=== PATIENT | male | born 1970 | race Caucasian/White ===

== ENCOUNTER → 2017-02-05 | Outpatient (CLI) | payer OTHER | LOC: FIMAGING 07:41 | PROVIDERS: ATTEND Orthopaedic Surgery | DX: Z01.818 Encounter for other preprocedural examination (principal); M17.12 Unilateral primary osteoarthritis, left knee; M25.462 Effusion, left knee; M25.552 Pain in left hip; M25.452 Effusion, left hip ==

== ENCOUNTER 2017-03-10 05:45 | Observation (INO) | payer OTHER ==
--- NOTE | 2017-02-23 11:00 | GHP ---
[f rep st] PREOP HISTORY AND PHYSICAL Amended report DATE OF ADMISSION: 03/10/2017 PROBLEM: Left knee medial compartment degenerative arthritis. HISTORY OF PRESENT ILLNESS: The patient is a 46-year-old man admitted for a left knee medial compartment Oscar hemiarthroplasty. I did arthroscopic surgery on his left knee in 2007. It was repeated again by Dr. Shalom Sood in 2011. His knee has been consistently painful since 2014. He complains of medial joint line pain. He is having daily pain and night pain. 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 He occasionally notices swelling. He cannot take anti-inflammatory medicines because of a history of ulcers. He is admitted for a left knee medial compartment Oscar hemiarthroplasty. PAST MEDICAL HISTORY: He has GERD and peptic ulcer disease. He is also treated for anxiety. No history of heart disease, stents, DVT, hepatitis or sleep apnea. CURRENT MEDICATIONS: Apresoline 0.5 mg at h.s. for sleep; aripiprazole, fluoxetine and lamotrigine all taken for anxiety. He is also on lithium for anxiety. He takes delayed release pantoprazole daily. REVIEW OF SYSTEMS: No history of heart disease, stents, DVT, hepatitis, or sleep apnea. He has never had a serious MRSA staph infection. ALLERGIES: Drug allergies: None. Metal allergy: None. Latex allergy: None. SOCIAL HISTORY: The patient is . He smokes about 5 cigarettes per day. He does not drink alcohol. FAMILY HISTORY: Positive for diabetes, heart disease and hypertension. PHYSICAL EXAMINATION: GENERAL: He is a healthy-appearing man. Height 5 feet, 10 inches. Weight 178 pounds. BMI 25.5. EYES: Conjunctivae and sclerae are clear. Pupils are round and reactive. MOUTH: Good oral hygiene. No loose teeth. CHEST: Clear. HEART: Regular rhythm. No murmurs. EXTREMITIES: Pertinent findings limited to his left knee. He has a small effusion. Full extension and 130 degrees of flexion. Mild pseudolaxity of his medial collateral ligament. Valgus stress aggravates his pain. He is tender along the medial joint line. His patella is not tender with compression and subluxation. No patellofemoral crepitation with active knee extension. IMAGING: His films show moderately severe degenerative arthritis in the medial compartment of his left knee. He has peripheral osteophytes, cartilage space narrowing and subchondral sclerosis. IMPRESSION ON ADMISSION: 1. Left knee medial compartment degenerative arthritis. 2. Gastroesophageal reflux disease and peptic ulcer disease. 3. Treatment for anxiety. PLAN: He will undergo a left knee medial compartment Oscar hemiarthroplasty. The surgery has been described to him including the risks, complications, expectations and recovery time. I have stressed the importance of postoperative physical therapy. He understands that he is young for any type of arthroplasty and that it may require revision surgery in the future. All of his questions have been answered, and he consents to surgery. /[id number]/MODL Add acc#, 02/24/17, felipe ROLDAN
[2017-03-10] MEDS ORDERED: ROPI/epiNEPH/KETOROLAC JOINT COCKTAIL IU ONE (06:00)
[2017-03-10] MEDS ORDERED: ACETAMINOPHEN 325 MG TAB PO ONE (06:00)
[2017-03-10] MEDS ORDERED: DEXAMETHASONE 4 MG/ML VIAL IVP ONE (06:00)
[2017-03-10] MEDS ORDERED: TRANEXAMIC ACID 800 MG in NS 100 ML IV ONE (06:00)
[2017-03-10] MEDS ORDERED: CEFAZOLIN 2 GM/DEXTR 100 ML IV ONE (06:00)
[2017-03-10] MEDS ORDERED: CHLORHEXIDINE GLUC HIBICLENS 118 ML BTL TP ONE (06:00)
[2017-03-10] MEDS ORDERED: POVIDONE-IODINE 20 ML in SODIUM CL IRRIG SOLUTION 500 ML IRR ONE (06:00)
[2017-03-10] MEDS ORDERED: FAMOTIDINE 20 MG TAB PO ONE (06:00)
[2017-03-10] MEDS ORDERED: LIDOCAINE 1% 2 ML INJ ONE (06:06)
[2017-03-10] MEDS ORDERED: LR 1,000 ML IV ONE (06:23)
[2017-03-10] MEDS ORDERED: LIDOCAINE 1% 5 ML SDV ID PRN (06:23)
[2017-03-10] MEDS ORDERED: ceFAZolin 1 GM/5 ML SYR ONE (06:49)
[2017-03-10] MEDS ORDERED: VANCOMYCIN 1 GM VIAL IV ONE (06:49)
[2017-03-10] MEDS ORDERED: MIDAZOLAM 2 MG/2 ML VIAL ONE (06:56)
[2017-03-10] MEDS ORDERED: PROPOFOL/EMULSION 500 MG/50 ML BOTTLE IV ONE (07:03)
[2017-03-10] MEDS ORDERED: epHEDrine SULFATE 10 MG/ML SYR ONE (07:24)
[2017-03-10] MEDS ORDERED: GLYCOPYRROLATE 0.2 MG/1 ML VIAL ONE (07:24)
[2017-03-10] MEDS ORDERED: ONDANSETRON 4 MG/2 ML VIAL ONE (08:13)
[2017-03-10] MEDS ORDERED: RANITIDINE 50 MG/2 ML VIAL ONE (08:13)
[2017-03-10] MEDS ORDERED: ROPIVACAINE HCL 150 MG/30 ML INJ ONE (08:13)
[2017-03-10] MEDS ORDERED: DIAZEPAM 10 MG/2 ML SYR ONE (08:17)
[2017-03-10] MEDS ORDERED: traMADol 50 MG TAB PO PRN (09:17)
[2017-03-10] MEDS ORDERED: NS 500 ML IV PRN (09:17)
[2017-03-10] MEDS ORDERED: diphenhydrAMINE 25 MG CAP PO PRN (09:17)
[2017-03-10] MEDS ORDERED: POLYETHYLENE GLYCOL 3350 17 GM PKT PO PRN (09:17)
[2017-03-10] MEDS ORDERED: BISACODYL 10 MG SUPP PR PRN (09:17)
[2017-03-10] MEDS ORDERED: DIPHENOXYLATE/ATROPINE LOMOTIL 1 TAB PO PRN (09:17)
[2017-03-10] MEDS ORDERED: PHARMACY PAIN CONSULT 1 EA MISC PRN (09:17)
[2017-03-10] MEDS ORDERED: KETOROLAC 30 MG/1 ML SDV IVP PRN (09:17)
[2017-03-10] MEDS ORDERED: PROMETHAZINE HCL 25 MG SUPPR PR PRN (09:17)
[2017-03-10] MEDS ORDERED: oxyCODONE IR 5 MG TAB PO PRN (09:17)
[2017-03-10] MEDS ORDERED: LACTULOSE 20 GM/30 ML UDCUP PO PRN (09:17)
[2017-03-10] MEDS ORDERED: ONDANSETRON DISINTEGRATING 4 MG TAB PO PRN (09:17)
[2017-03-10] MEDS ORDERED: ONDANSETRON 4 MG/2 ML VIAL IVP PRN (09:17)
[2017-03-10] MEDS ORDERED: MAGNESIUM HYDROXIDE 30 ML UDCUP PO PRN (09:17)
[2017-03-10] MEDS ORDERED: CYCLOBENZAPRINE 10 MG TAB PO PRN (09:17)
[2017-03-10] MEDS ORDERED: LR 1,000 ML IV SCH (09:30)
--- NOTE | 2017-03-10 09:30 | POSTOPPROG ---
Post Op Note Date of Operation: 03/10/17 Surgeon: Nazario Varma Casing Man: Alejandro Anesthesiologist: Ana Anesthesia: IV Sedation, Spinal Post-op Diagnosis: right knee arthritis Procedure: R Oscar medial uni arthroplasty Inf/Abcess present in the surg proc area at time of surgery?: No EBL: 50-100 (add canal block)
--- NOTE | 2017-03-10 11:00 | GOP ---
[f rep st] OPERATIVE REPORT DATE OF OPERATION: 03/10/2017 SURGEON: Nazario Varma MD INSPECTOR MACHINE CUT GLASS: Jt Allen CFA. ANESTHESIA: Combination of Marcaine spinal, IV sedation, and adductor canal block. ANESTHESIOLOGIST: Andria Perez M.D. PREOPERATIVE DIAGNOSIS: Left knee medial compartment degenerative arthritis. POSTOPERATIVE DIAGNOSIS: Left knee medial compartment degenerative arthritis. PROCEDURE PERFORMED: Left knee Oscar medial compartment Uni arthroplasty. FINDINGS: DESCRIPTION OF PROCEDURE: The patient was given 2 g of preoperative IV Ancef within 60 minutes of s urgery. He also received IV tranexamic acid at a dose of 10 mg/kg. He was placed on the operating room table and given spinal anesthesia with Marcaine by Dr. Wilks. He was then placed supine and given IV sedation. A Navarro catheter was not used. He wore a NICOEL stocking and SCD on the nonope rative leg. His left lower extremity was prepped with ChloraPrep from the upper thigh tourniquet to the tips of the toes. It was draped free using sterile sheets, towels, and Ioban plastic drape. T he World Health Organization time-out was performed to verify the correct surgical site and side, an d the correct patient identity. The [facility] leg holding device was sterilely attached to the operat ing room table and used throughout the procedure to help position the knee. Two 3 mm partially threaded pins were inserted into the anteromedial cortex of the femur approximate ly 4-5 inches proximal to the superior pole of the patella. They were inserted in a bicortical fash ion. Two 3 mm partially threaded pins were inserted into the anteromedial cortex of the tibia about 4-5 inches distal to the tibial tubercle. They were also inserted bicortical. The [employer]eler[employer] g arrays were attached to the femur and tibia. I confirmed that the arrays were visualized by the c omputer. The leg was exsanguinated with a 6 inch Johann wrap and the pneumatic tourniquet was inflated to 300 mmHg. I made a 4 inch curved medial parapatellar incision. Subcutaneous tissues were sharply divided and hemostasis was obtained using electrocautery. The capsule and synovium were opened in a medial para patellar fashion. Significant degenerative changes were present in his medial compartment. The art icular surface of his patella and the articular surface of the lateral femoral condyle that I could see were in very good condition. The medial capsule and periosteum were elevated off the rim of the medial tibial plateau all the way around to the posteromedial corner. I released the medial collat eral ligament enough to balance the medial side of the knee. The anterior portion of his medial men iscus was excised. A small portion of the fat pad was excised to improve exposure. The femoral and tibial check points were inserted, checked, and confirmed. I then performed the hip registration. This was followed by registration of the medial and lateral malleoli. The bony dayanna jeffery of the femur and tibia and the medial compartment were registered. Joint balancing was checked and captured in multiple degrees of flexion from 10 degrees to 120 degre es. I used a curved osteotome in the medial compartment to properly tension the medial collateral l igament. Implant position and templating were performed. I made a few minor adjustments in the pos ition of the femoral component to achieve proper balance of the medial collateral ligament throughou t the range of motion. I confirmed the preoperative plan for a size 6 on the femur and size 6 on th e tibia. The robotic arm was registered. I performed the burring on the medial femoral condyle first. This was followed by the burring of the tibial plateau with robotic arm control. The cut cartilage edges were trimmed with a rongeur. The anchor holes on the femur and the tibia were completed. I excise d the posterior horn of his medial meniscus. I did a trial reduction and confirmed that the 6 femur with a 6 tray and an 8 mm insert were correct . He had good position of his components. He had full range of motion and 135 degrees of flexion. His medial collateral ligament was properly tensioned throughout the range of motion. A second dose of tranexamic acid was given at a dose of 10 mg/kg. The surfaces were prepared for ce menting. They were carefully cleaned with the pulsating lavage. The CarboJet device was used to bl ow dry the cancellous surfaces. A single batch of high viscosity methylmethacrylate cement with 1 g of added vancomycin was mixed. While it was still in a doughy workable stage, I packed the peg hol es on the tibial surface and layered some additional cement on the undersurface of the tray. This w as inserted and tapped securely into place. Excess cement was removed before it hardened. I packed a small amount of cement in the peg holes of the femur and added some additional cement on the back surface of the femoral component. The component was inserted and tapped securely into place. Exce ss cement was removed before it hardened. The trial size 6, 8 mm polyethylene trial was inserted an d locked into place. I held tension on the knee until the cement hardened. Excess cement was remov ed before it hardened. I then removed the trial component and reinspected the posterior compartment to make sure there was no extruded cement. The actual Oscar 8 mm size 6 tibial insert was inserted and locked into place. The tourniquet was deflated. The total tourniquet time was 1 hour and 17 minutes. The tibial and f emoral check points were removed. Two pins in the femur and the 2 pins in the tibia were removed. 40 mL of a joint anesthetic cocktail were injected into the medial capsule, the vastus medialis tend on and muscle, and the subcutaneous tissues along the skin edges. A drain was not used. The vastus medialis portion of the extensor mechanism was repaired with several interrupted [id number] #2 FiberWire sutures. The capsule and synovium were closed first with multiple interrupted figure-of- eight 0 PDS sutures, followed by a running #2 barbed Ethicon Stratafix PDO suture. Subcutaneous tis sues were closed with a running 0 barbed Ethicon Stratafix Monoderm suture. The skin was closed wit h a running 3-0 barbed Ethicon Stratafix Monoderm subcuticular suture. The skin edges were reapprox imated and sealed with half-inch Steri-Strips. The puncture wounds were closed with Steri-Strips. The wound was covered with Xeroform gauze and flat 4x4s, and the knee was wrapped with Kerlix and 6- inch compressive wrap. A long-leg NICOLE stocking was applied followed by the cooling device. He wore a stocking and SCD on the opposite leg during the procedure. I used a Oscar Restoris MCK femoral component in size 6. The tibial tray was a Oscar Restoris MCK in size 6. The tibial insert was a size 6 and 8 mm in thickness. Jt Allen acted as the cancer genetics assistant. His assistance was a medical necessity. /[id number]/MODL
[2017-03-10] MEDS: ACETAMINOPHEN 325 MG TAB PO SCH ×2 (12:12→17:42)
[2017-03-10 13:07] VITALS: RESP 16
[2017-03-10] MEDS ORDERED: ceFAZolin 2 GM/DEXTROSE 100 ML IV SCH (15:00)
[2017-03-10 15:22] VITALS: BP 104/78; PULSE 45; TEMP 98; O2SAT 97
[2017-03-10] MEDS ORDERED: TRANEXAMIC ACID 650 MG TAB PO SCH (16:00)
[2017-03-10] MEDS ORDERED: ASPIRIN 325 MG TAB PO SCH (21:00)
[2017-03-10] MEDS ORDERED: FAMOTIDINE 20 MG TAB PO SCH (21:00)
[2017-03-10] MEDS ORDERED: SENNOSIDES/DOCUSATE SODIUM TAB PO SCH (21:00)
[2017-03-11] MEDS ORDERED: FERROUS SULFATE 140 MG TAB.ER PO SCH (09:00)
== END 2017-03-10 18:34 | disposition home or self-care (01) ==
LOC: F3N 05:45
PROVIDERS: ADMIT Orthopaedic Surgery; ATTEND Orthopaedic Surgery
PROC: 0SRD0L9 Replacement of Left Knee Joint with Medial Unicondylar Synthetic Substitute, Cemented, Open Approach (ICD-10-PCS; principal; 2017-03-10 07:15)
PROC: 8E0Y0CZ Robotic Assisted Procedure of Lower Extremity, Open Approach (ICD-10-PCS; principal; 2017-03-10 07:15)
DX: M17.12 Unilateral primary osteoarthritis, left knee (principal); K21.9 Gastro-esophageal reflux disease without esophagitis; F41.9 Anxiety disorder, unspecified
CPT/HCPCS: 27446; 73560; 97110; 97161; G0378; G8978; G8979; G8980; C1713; J0171; J0690; J1100; J1885; J2250; J2405; J2704; J2780; J2795; J3370

== ENCOUNTER 2017-08-18 09:37 | Inpatient (IN) | payer OTHER ==
[~2017-08-18 09:37] MED LIST: POVIDONE-IODINE 20 ML in SODIUM CL IRRIG SOLUTION 500 ML IRR ONE; ROPIVACAINE 0.2% 80 MG, EPINEPHrine 0.2 MG, KETOROLAC TROMETHAMINE 30 MG in BAG 0 ML IU ONE; TRANEXAMIC ACID 1,660 MG in NS 100 ML IV ONE
[2017-08-18] MEDS ORDERED: DEXAMETHASONE 4 MG/ML VIAL IVP ONE (10:04)
[2017-08-18] MEDS ORDERED: ceFAZolin 2 GM/DEXTROSE 100 ML IV ONE (10:04)
[2017-08-18] MEDS ORDERED: LIDOCAINE 1% 2 ML INJ ID PRN (10:04)
[2017-08-18] MEDS ORDERED: FAMOTIDINE 20 MG TAB PO ONE (10:04)
[2017-08-18] MEDS ORDERED: LR 1,000 ML IV ONE (10:04)
[2017-08-18] MEDS ORDERED: ACETAMINOPHEN 325 MG TAB PO ONE (10:04)
[2017-08-18] MEDS ORDERED: ceFAZolin 1 GM/5 ML SYR ONE (10:22)
[2017-08-18] MEDS ORDERED: MIDAZOLAM 2 MG/2 ML VIAL IVP ONE (11:14)
--- NOTE | 2017-08-18 11:15 | PDANEPAE ---
ANE History of Present Illness here for JAMES ANE Past Medical History - Cardiovascular History Hx Hypertension: No Hx Arrhythmias: No Hx Chest Pain: No Hx Coronary Artery / Peripheral Vascular Disease: No Hx CHF / Valvular Disease: No Hx Palpitations: No - Pulmonary History Hx COPD: No Hx Asthma/Reactive Airway Disease: No Hx Recent Upper Respiratory Infection: No Hx Oxygen in Use at Home: No Hx Sleep Apnea: No Sleep Apnea Screening Result - Last Documented: Negative Pulmonary History Comment: URI 11/2016 - Neurologic History Hx Cerebrovascular Accident: No Hx Seizures: No Hx Dementia: No - Endocrine History Hx Diabetes: No - Renal History Hx Renal Disorders: No - Liver History Hx Hepatic Disorders: No - Neurological & Psychiatric Hx Hx Neurological and Psychiatric Disorders: Yes Neurological / Psychiatric History Comment: ANXIETY - Cancer History Hx Cancer: No - Congenital Disorder History Hx Congenital Disorders: No - GI History Hx Gastrointestinal Disorders: Yes Gastrointestinal History Comment: PUD. GERD. CONSTIPATION - Other Health History Other Health History: OSTEOARTHRITIS. DDD - Chronic Pain History Chronic Pain: Yes (LT HIP) - Surgical History Prior Surgeries: LT PARTIAL TOTAL KNEE 03/2017. LT KNEE SCOPE X2 ANE Review of Systems Review of Systems: - Exercise capacity METS (RN): 4 METS ANE Patient History - Allergies Allergies/Adverse Reactions: aspirin Allergy (Mild, Verified 02/23/17 15:51) can't take due to ulcers - Home Medications Home medications: home medication list seen and reviewed Home Medications: FLUoxetine [Prozac 10 MG (*)] 10 mg PO DAILY 06/12/15 [Last Taken 03/10/17 04:00 ] ALPRAZolam [Xanax 0.5 MG (*)] 0.5 mg PO TID PRN #0 02/23/17 [Last Taken 03/09/17 ] [place] Carbonate [[place] Carbonate Cap 300 mg (*)] 300 mg PO HS 08/12/17 [ Last Taken Unknown] lamoTRIgine [LamICTAL 100 MG (*)] 200 mg PO DAILY 08/12/17 [Last Taken Unknown] Abilify HS 08/13/17 [Last Taken Unknown] - NPO status NPO Status: no food or drink >8 hours NPO Since - Liquids (Date): 08/17/17 NPO Since - Liquids (Time): 21:00 NPO Since - Solids (Date): 08/17/17 NPO Since - Solids (Time): 21:00 - Anes Hx Anes Hx: no prior problems - Smoking Hx Smoking Status: Current some day smoker ANE Labs/Vital Signs - Vital Signs Blood Pressure: 113/71 Heart Rate: 63 Respiratory Rate: 16 O2 Sat (%): 96 Height: 179.07 cm Weight: 83.007 kg ANE Anesthesia Plan Anesthesia Plan: spinal
--- NOTE | 2017-08-18 11:29 | PDHPUP ---
History & Physical Update H&P update statement: This history and physical update is based on an assessment of the patient which was completed after admission or registration (within 24 hours), but prior to the surgery/procedure. H&P update: H&P reviewed & patient examined, no change in patient's condition since H&P completed
[2017-08-18 11:43] LABS: % IMMATURE GRANULYOCYTES 0.4 % (0.0-1.1); ABSOLUTE IMMATURE GRANULOCYTES 0.04 10^3/uL (0.00-0.10); ADD DIFF? NO; ADD MORPH? NO; ADD SCAN? NO; ATYPICAL LYMPHOCYTE FLAG 0 (0-99); FRAGMENT RBC FLAG 0 (0-99); HEMATOCRIT 47.1 % (40.0-51.0); HEMOGLOBIN 16.4 g/dL (13.7-17.5); LEFT SHIFT FLG 0 (0-99); LIPEMIA HEMOLYSIS FLAG 90 (0-99); MEAN CELL HEMOGLOBIN 32.4 pg (27.9-34.1); MEAN CELL HEMOGLOBIN CONCENTR. 34.8 g/dL (32.4-36.7); MEAN CELL VOLUME 93.1 fL (81.5-99.8); MEAN PLATELET VOLUME 9.2 fL (8.7-11.7); PLATELET CLUMPS FLAG 0 (0-99); PLATELET COUNT 212 10^3/uL (150-400); RED BLOOD CELL COUNT 5.06 10^6/uL (4.40-6.38); RED CELL DISTRIBUTION WIDTH 14.6 % (11.5-15.2)
[2017-08-18] MEDS ORDERED: PROPOFOL/EMULSION 500 MG/50 ML BOTTLE IV ONE ×2 (11:45→12:22)
[2017-08-18] MEDS ORDERED: fentaNYL 100 MCG/2 ML INJ ONE ×2 (11:46→12:09)
[2017-08-18] MEDS ORDERED: ONDANSETRON 4 MG/2 ML VIAL IVP PRN ×2 (12:54→13:50)
[2017-08-18] MEDS ORDERED: ALBUTEROL 3 ML DEYVIAL IH PRN (12:54)
[2017-08-18] MEDS ORDERED: PROMETHAZINE HCL 25 MG/ML INJ IVP PRN ×2 (12:54→13:50)
[2017-08-18] MEDS ORDERED: HYDROmorphONE/DILAUDID 1 MG/ML INJ IVP PRN (12:54)
[2017-08-18] MEDS ORDERED: NALOXONE HCL 0.4 MG/ML INJ IVP PRN (12:54)
[2017-08-18] MEDS ORDERED: PROPOFOL 200 MG/20 ML VIAL ONE ×2 (13:07→13:37)
[2017-08-18] MEDS ORDERED: BISACODYL 10 MG SUPP PR PRN (13:50)
[2017-08-18] MEDS ORDERED: MAGNESIUM HYDROXIDE 30 ML UDCUP PO PRN (13:50)
[2017-08-18] MEDS ORDERED: KETOROLAC 30 MG/1 ML SDV IVP PRN (13:50)
[2017-08-18] MEDS ORDERED: LACTULOSE 20 GM/30 ML UDCUP PO PRN (13:50)
[2017-08-18] MEDS ORDERED: POLYETHYLENE GLYCOL 3350 17 GM PKT PO PRN (13:50)
[2017-08-18] MEDS ORDERED: DIPHENOXYLATE/ATROPINE LOMOTIL 1 TAB PO PRN (13:50)
[2017-08-18] MEDS ORDERED: ONDANSETRON DISINTEGRATING 4 MG TAB PO PRN (13:50)
[2017-08-18] MEDS ORDERED: diphenhydrAMINE 25 MG CAP PO PRN (13:50)
[2017-08-18] MEDS ORDERED: TEMAZEPAM 15 MG CAP PO PRN (13:50)
[2017-08-18] MEDS ORDERED: METOCLOPRAMIDE 10 MG/2 ML VIAL IVP PRN (13:50)
[2017-08-18] MEDS ORDERED: TAPENTADOL HCL 50 MG TAB PO PRN (13:50)
[2017-08-18] MEDS ORDERED: traMADol 50 MG TAB PO PRN (13:50)
[2017-08-18] MEDS ORDERED: CYCLOBENZAPRINE 10 MG TAB PO PRN (13:50)
[2017-08-18] MEDS ORDERED: PROMETHAZINE HCL 25 MG SUPPR PR PRN (13:50)
--- NOTE | 2017-08-18 13:50 | POSTOPPROG ---
Post Op Note Date of Operation: 08/18/17 Surgeon: Nazario Varma Associate Theatre Professor: Jt Allen/Vinita Wylie Anesthesiologist: Dr. 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 Procedure: Left total hip arthroplasty Inf/Abcess present in the surg proc area at time of surgery?: No EBL: 100-500
[2017-08-18] MEDS ORDERED: ALPRAZolam 0.5 MG TAB PO PRN (13:53)
[2017-08-18] MEDS ORDERED: LR 1,000 ML IV SCH (14:00)
--- NOTE | 2017-08-18 14:58 | GOP ---
[f rep st] OPERATIVE REPORT DATE OF OPERATION: 08/18/2017 SURGEON: Nazario Varma MD MARINE EQUIPMENT TEST ENGINEER: Jt Allen CFA, and Vinita Wylie RN. ANESTHESIA: Combination of Marcaine, spinal, and IV sedation. ANESTHESIOLOGIST: Daljit Kim MD. PREOPERATIVE DIAGNOSIS: Left hip degenerative arthritis with acetabular dysplasia. POSTOPERATIVE DIAGNOSIS: Left hip degenerative arthritis with acetabular dysplasia. PROCEDURE PERFORMED: Left total hip arthroplasty. Ceramic femoral head on highly cross-linked polye thylene cup liner. FINDINGS: DESCRIPTION OF PROCEDURE: The patient was given 2 g of IV Ancef preoperatively within 60 minutes of surgery. He also received IV tranexamic acid at a dose of 20 mg/kg. He was placed on the operating room table and given spinal anesthesia with Marcaine by Dr. Kim. He was then placed supine and gi tamir IV sedation. A Navaror catheter was not used. He wore a NICOLE stocking and SCD on the nonoperative leg. He was rolled to the right lateral decubitus position. The position was secured with the [employer] kyrie table attachment. An axillary roll was used, and all pressure points were carefully padded. I w as careful to lock his pelvis in a rigid vertical position. His perineum was isolated with plastic a dhesive drapes. The left hip and left lower extremity were prepped with ChloraPrep. They were drape d free using sterile sheets, stockinette, and Ioban plastic adhesive drape. The World Health Organization time-out was performed to verify the correct surgical side and site, an d the correct patient identity. The [place] time-out was also performed. I made a 5-inch straight oblique posterolateral hip skin incision. The subcutaneous tissues were sha rply divided, and hemostasis was obtained using electrocautery. The fascia justyn was identified and s plit along the axis of their fibers. I then curved posteriorly and proximally split the fascia of gl uteus michael and bluntly split the muscle fibers in line with their orientation. The Charnley self- retaining retractor was inserted. His sciatic nerve was located, partially exposed, and protected th roughout the procedure. The external rotators and the posterior hip capsule were divided as separate layers at the base of the femoral neck, tagged, and reflected posteriorly. A smooth 8-inch Cari n pin was inserted vertically into the ilium, superior to the acetabulum. An 8-inch drill bit was in serted vertically into the greater trochanter and parallel to the first pin. The distance between th e 2 was measured for leg length reference. His femoral head was dislocated posteriorly. Severe dege nerative changes were present. The femoral neck was osteotomized at the appropriate level and inclin ation. I was careful to preserve all the posterior capsule and most of the anterior capsule. The remnant of his damaged labrum was excised. I prepared the femur first. This allowed me to federal judge the amount of natural femoral neck anteversion. This, in turn, allowed me to later determine the correct amount of cup anteversion. He had approxi mately 15 degrees of natural femoral neck anteversion. The canal was opened first laterally with a b ox chisel. I hand broached sequentially up to a size 7. The 7 broach was used as a trial stem. I w as careful to lateralize adequately. Appropriate retractors were inserted to expose the acetabulum. The acetabulum was reamed sequentiall y up to 55 mm. I selected a 56 mm Mahesh Tritanium solid-backed hemispherical shell. The patient h ad a shallow acetabulum. I was careful to deepen it medially. The Mahesh acetabular shell with an outside diameter of 56 mm was tapped securely into place in the proper degree of inclination and ante version. I used the transverse acetabular ligament and other acetabular bony landmarks to help me pr operly orient the cup. Fixation was secure and I did not think additional fixation screws were neces divya. I inserted a screw-in metal dome hole plug. I performed a series of trial reductions to determine length and stability. He had excellent stabili ty. However, my leg length measurement techniques were inconsistent. I took an intraoperative cross -table AP pelvis x-ray. I confirmed proper position of the stem and acetabular component, and the co rrect length. The flush or 0-degree Mahesh X3 highly cross-linked polyethylene liner was inserted and tapped secur minh into place. I then selected the Mahesh Accolade II stem in a size 7 with high offset. This was inserted press-fit, and was a very tight fit. I did 1 final trial reduction and confirmed that the -2.5 mm neck length with the 36 mm head was the proper combination. I selected the Mahesh Biolox De lta ceramic head with an outside diameter of 36 mm and a neck length of -2.5 mm. The head was tapped securely onto the clean trunnion. His acetabulum was irrigated and cleaned, and the hip was reduced 1 final time. He had excellent anterior and posterior stability and appropriate length. Then, 40 mL of the joint anesthetic cocktail was injected into the capsule, deep musculature, and sub cutaneous tissues around the skin edges. The joint was thoroughly irrigated 1 final time with a dilu te Betadine solution. His sciatic nerve was reinspected and looked unharmed. The external rotators and the posterior hip capsule were repaired in separate layers with #2 FiberWire sutures through dril l holes in the greater trochanter. This provided a strong posterior capsular and external rotator re pair. The fascia justyn was closed first with a couple of xufaxp-in-mrtgs #2 FiberWire interrupted sut ures followed by a running #2 barbed Ethicon Stratafix PDO suture. Subcutaneous tissues were closed with a running 0 barbed Ethicon Stratafix Monoderm suture. The skin was closed with a running 3-0 ba rbed Ethicon Stratafix Monoderm subcuticular suture. The skin edges were reapproximated and sealed w ith Dermabond glue. The wound was covered with a strip of Telfa, and everything was held in place wi th a piece of clear plastic Tegaderm. A long-leg NICOLE stocking and SCD were applied to his left lower extremity. He wore a stocking and SCD on the opposite leg during the procedure. An abduction pillow was placed between his knees. He was awakened from anesthesia and rolled to the supine position on his hospital bed. He was taken to PAC U in satisfactory condition. There were no recognized intraoperative complications. The estimated blood loss was about 400 mL. The sponge and needle count were correct on 2 occasions. I used a [place] Tritanium hemispherical press-fit solid-backed acetabular shell with an outside diam eter of 56 mm. The liner was a Mahesh X3 0-degree highly cross-linked liner with an inside diameter of 36 mm. The femoral component was a high offset Mahesh Accolade II stem in a size 7 and press-fi t. The femoral head was a Mahesh Biolox Delta ceramic head with a -2.5 mm neck length and a 36 mm o utside diameter. Jt Allen and Vinita Wylie acted as surgical assistants. Their assistance was a medical necessi ty for safe completion of the procedure. /[id number]/MODL
[2017-08-18 15:49] VITALS: RESP 16
[2017-08-18] MEDS: ACETAMINOPHEN 325 MG TAB PO SCH ×2 (16:59→22:56)
[2017-08-18] MEDS: TRANEXAMIC ACID 650 MG TAB PO SCH ×2 (16:59→22:56)
[2017-08-18] MEDS: oxyCODONE IR 5 MG TAB PO PRN ×2 (17:02→20:36)
--- NOTE | 2017-08-18 17:46 | POSTANESTH ---
Post Anesthetic Evaluation Cardiovascular Status: Normal, Stable Respiratory Status: Normal, Stable Level of Consciousness/Mental Status: Can Participate in Eval Pain Control: Adequate, Prn Tx Ordered Nausea/Vomiting Control: Adequate, Prn Tx Ordered Complications Possibly Related to Anesthesia: None Noted
[2017-08-18] MEDS: SENNOSIDES/DOCUSATE SODIUM TAB PO SCH (20:35)
[2017-08-18] MEDS: FAMOTIDINE 20 MG TAB PO SCH (20:35)
[2017-08-18] MEDS: ceFAZolin 2 GM/DEXTROSE 100 ML IV SCH (20:37)
[2017-08-18] MEDS ORDERED: LITHIUM CARBONATE 300 MG CAP PO SCH (21:00)
[2017-08-18] MEDS: ASPIRIN 325 MG TAB PO SCH (22:58)
[2017-08-18 23:17] VITALS: TEMP 98.1
[2017-08-19] MEDS: oxyCODONE IR 5 MG TAB PO PRN ×4 (00:03→11:09)
[2017-08-19 05:17] LABS: HEMATOCRIT 39.1 % (40.0-51.0); HEMOGLOBIN 13.3 g/dL (13.7-17.5)
[2017-08-19] MEDS: ceFAZolin 2 GM/DEXTROSE 100 ML IV SCH (05:19)
[2017-08-19] MEDS: ACETAMINOPHEN 325 MG TAB PO SCH ×2 (05:20→11:09)
[2017-08-19 07:47] VITALS: BP 122/79; PULSE 85; O2SAT 97
[2017-08-19] MEDS: ASPIRIN 325 MG TAB PO SCH (08:22)
[2017-08-19] MEDS: SENNOSIDES/DOCUSATE SODIUM TAB PO SCH (08:23)
[2017-08-19] MEDS: TRANEXAMIC ACID 650 MG TAB PO SCH (08:24)
[2017-08-19] MEDS: FAMOTIDINE 20 MG TAB PO SCH (08:24)
[2017-08-19] MEDS ORDERED: FERROUS SULFATE 140 MG TAB.ER PO SCH (09:00)
[2017-08-19] MEDS ORDERED: lamoTRIgine 100 MG TAB PO SCH (09:00)
[2017-08-19] MEDS ORDERED: FLUoxetine 10 MG CAP PO SCH (09:00)
--- NOTE | 2017-08-19 10:18 | SOAPPROG ---
SOAP Progress Note Assessment/Plan: Assessment: Afebrile. Awake and alert. Moderate pain. He has been walking in the [place]ova. His dressing is dry. Sciatic nerve intact. His H&H are good. Plan: He has been cleared by physical therapy. He will be discharged today. 08/19/17 10:17 Objective: Vital Signs Temp Pulse Resp BP Pulse Ox 36.7 C 85 16 122/79 H 97 08/19/17 04:45 08/19/17 07:43 08/19/17 07:43 08/19/17 07:43 08/19/17 07:43 Laboratory Results 08/19/17 05:01 08/18/17 08/19/17 08/20/17 05:59 05:59 05:59 Intake Total 860 Balance 860 ICD10 Worksheet Patient Problems: Problems Problem Status Onset Osteoarthritis of left knee Acute
--- NOTE | 2017-08-19 10:47 | GDS ---
[f rep st] DISCHARGE SUMMARY ADMISSION DIAGNOSIS: Left hip severe degenerative arthritis. DISCHARGE DIAGNOSIS: Left hip severe degenerative arthritis. OPERATION PERFORMED: 08/18/2017, a left total hip arthroplasty. POSTOPERATIVE COMPLICATIONS: None. CONDITION ON DISCHARGE: Improved. DESCRIPTION OF HOSPITAL COURSE: The patient was admitted to the hospital the morning of surgery. Hi s admission CBC was normal. The same day, under a combination of Marcaine, spinal, and IV sedation, he underwent a left total hip arthroplasty with a ceramic femoral head on highly cross-linked polyeth ylene cup liner. Postoperatively he was treated with multimodal DVT prophylaxis, including aspirin a nd early mobilization. On the first postoperative day his hemoglobin and hematocrit were 13.3 and 39 .1. He did not require any transfused blood. He was seen by Physical Therapy and made good progress with ambulation and stairs. By the time of discharge, he was afebrile, his wound was clean and dry, and he was independent walking with a walker. DISPOSITION: The patient discharged to his home. He will use NICOLE stockings for 1 week. He may prog ress to full weightbearing on the left as tolerated. Continue aspirin 325 mg p.o. daily for 25 days. He feels like he can tolerate 1 aspirin a day for that period of time. He has prescriptions for ox ycodone and tramadol for pain control. I will see him back in the office on September 07, 2017. If th ere any problems, he is to call me at the office. /[id number]/MODL
--- NOTE | 2017-08-19 12:30 | ASDISCHSUM ---
Discharge Information Plan Status:Home with No Needs Medically Cleared to Leave: Discharge Date:08/19/2017 11:11 AM CM D/C Disposition:Home, Routine, Self-Care ADT D/C Disposition:Home, Routine, Self-Care Projected Discharge Date:08/19/2017 11:11 AM Transportation at D/C: Discharge Delay Reason: Follow-Up Date:08/19/2017 11:11 AM Discharge Slot: Final Diagnosis: Placement Information Patient Contact Information Contact Name:HONORIO Relationship: Address:[address] [place] [address] [place] [facility] Phone: [facility]/Zip Code:[place] [address] Email: Financial Information Financial Class:HMO and PPO Plans Primary Plan Desc:[facility] Primary Plan Number:[id number] Secondary Plan Desc: Secondary Plan Number: Assessment Information [facility] CM Progress Note CM Note CM Note Notes: PT clears pt for home/outpat. No CM d/c needs identified Date Signed: 08/19/2017 12:29 PM Electronically Signed By:YAA Gillis Intervention Information Intervention Type:*Incorrect Registration Date of Service:08/18/2017 03:38 PM Patient Type:Observation Staff Member:ALBA Ordoñez, Yari Hours: Discipline: Severity: Comment:
== END 2017-08-19 11:11 | disposition home or self-care (01) | DRG 470 ==
LOC: FSGY 09:37 → EDSTATUS 12:00 → OBSVTOIN 13:43 → F3N 13:43
PROVIDERS: ADMIT Orthopaedic Surgery; ATTEND Orthopaedic Surgery
PROC: 0SRB04Z Replacement of Left Hip Joint with Ceramic on Polyethylene Synthetic Substitute, Open Approach (ICD-10-PCS; principal; 2017-08-19)
DX: M16.12 Unilateral primary osteoarthritis, left hip (principal); K21.9 Gastro-esophageal reflux disease without esophagitis; F41.9 Anxiety disorder, unspecified
CPT/HCPCS: 97110-GP; 97161-GP; 97165-GO; J0171; J0690; J1100; J1885; J2250; J2704; J2795; J3010